=== PATIENT | male | born 1975 | race Caucasian/White ===

== ENCOUNTER → 2016-05-19 | Outpatient (CLI) | payer OTHER ==
[2016-05-19 14:14] LABS: HEMOGLOBIN 15.9 gm/dl (14.0-17.5); RED BLOOD COUNT 5.31 M/UL (4.20-5.50); WHITE BLOOD COUNT 10.3 K/UL (4.5-11.0)
[2016-05-19 14:20] LABS: BUN/CREATININE RATIO 12 (0-10)
== END ==
LOC: LAB 13:23
PROVIDERS: Nurse Practitioner Family
DX: R35.0 Frequency of micturition (principal); E78.5 Hyperlipidemia, unspecified; E55.9 Vitamin D deficiency, unspecified
CPT/HCPCS: 36415; 80053; 80061; 84443; 85025

== ENCOUNTER → 2020-05-06 | Outpatient (CLI) | payer BC | LOC: KOH-I 11:00 | DX: E04.2 Nontoxic multinodular goiter (principal); R22.1 Localized swelling, mass and lump, neck | CPT/HCPCS: 76536 ==

== ENCOUNTER → 2020-05-20 | Outpatient (CLI) | payer BC | LOC: CT 10:33 | DX: R22.1 Localized swelling, mass and lump, neck (principal) | CPT/HCPCS: 36415; 70491; 82565; Q9967 ==

== ENCOUNTER → 2020-08-19 | Outpatient (CLI) | payer BC | LOC: KOH-I 13:27 | DX: R91.1 Solitary pulmonary nodule (principal) | CPT/HCPCS: 71250 ==

== ENCOUNTER → 2021-02-17 | Outpatient (CLI) | payer BC | LOC: LAB 12:48 | DX: M79.671 Pain in right foot (principal) | CPT/HCPCS: 36415; 73630; 84550; 85652; 86140 ==

== ENCOUNTER → 2021-03-09 | Outpatient (CLI) | payer BC | LOC: KOH-I 11:29 | DX: R91.1 Solitary pulmonary nodule (principal); R91.8 Other nonspecific abnormal finding of lung field | CPT/HCPCS: 71250 ==

== ENCOUNTER → 2021-07-26 | Outpatient (CLI) | payer BC | LOC: HEART 5 07:38 | DX: R07.9 Chest pain, unspecified (principal); R06.02 Shortness of breath | CPT/HCPCS: 78452; 93306; A9502 ==

== ENCOUNTER → 2021-09-13 | Outpatient (CLI) | payer BC ==
[~2021-09-13] MED LIST: ATORVASTATIN CA40 MG PO; COLCHICINE0.6 MG PO; ISOSORBIDE MONO60 MG PO; LISINOPRIL-HCT1 EAC1 PO; METOPROLOL TAR100 MG PO; ZYLOPRIM 300 M300 MG PO
[2021-09-13 11:00] LABS: HEMOGLOBIN 15.6 gm/dl (14.0-17.5); RED BLOOD COUNT 5.08 M/UL (4.20-5.50); WHITE BLOOD COUNT 8.5 K/UL (4.5-11.0)
[2021-09-13 11:34] LABS: BUN/CREATININE RATIO 11 (0-10)
== END ==
LOC: LAB 10:27
PROVIDERS: Nurse Practitioner Family
DX: I10 Essential (primary) hypertension (principal); E78.5 Hyperlipidemia, unspecified; R94.6 Abnormal results of thyroid function studies; E55.9 Vitamin D deficiency, unspecified; M10.9 Gout, unspecified
CPT/HCPCS: 36415; 80053; 80061; 81001; 84439; 84443; 84550; 85025

== ENCOUNTER → 2021-09-15 | Outpatient (CLI) | payer BC ==
[2021-09-15 07:25] LABS: HEMOGLOBIN 15.7 gm/dl (14.0-17.5); RED BLOOD COUNT 5.27 M/UL (4.20-5.50); WHITE BLOOD COUNT 9.3 K/UL (4.5-11.0)
[2021-09-15 07:41] LABS: BUN/CREATININE RATIO 11 (0-10)
== END ==
LOC: CATH 06:36
PROVIDERS: Internal Medicine Cardiovascular Disease
DX: I25.118 Atherosclerotic heart disease of native coronary artery with other forms of angina pectoris (principal); I10 Essential (primary) hypertension; E78.5 Hyperlipidemia, unspecified; Z87.891 Personal history of nicotine dependence; Z79.899 Other long term (current) drug therapy
CPT/HCPCS: 71045; 80048; 85025; 85610; 93005; 99152; C1769; C1894; J1644; J2250; J3010; Q9967